=== PATIENT | male | born 1990 | race Caucasian/White ===

== ENCOUNTER 2017-04-05 16:44 | Emergency (ER) | payer OTHER | END 2017-04-05 18:38 | disposition home or self-care (01) | LOC: ER 16:44 | DX: S20.212A Contusion of left front wall of thorax, initial encounter (principal); Z88.2 Allergy status to sulfonamides; W03.XXXA Other fall on same level due to collision with another person, initial encounter | CPT/HCPCS: 71101; 96372; 99283; A9270-GY; J1885 ==